=== PATIENT | male | born 1995 | race Hispanic/Latino ===

== ENCOUNTER 2021-01-07 09:51 | Emergency (ER) | payer OTHER ==
[~2021-01-07] VITALS: Ht 175.3 cm; Wt 79.2 kg
[2021-01-07 12:07] LABS: GC DNA AMPLIFICATION NEGATIVE (NEGATIVE)
[2021-01-07] MEDS ORDERED: DOXYCYCLINE HYCLATE 100MG TABLET PO ONE (12:50)
[2021-01-07] MEDS ORDERED: PHEN-372 PO (12:51)
[2021-01-07] MEDS ORDERED: DOXY-443 PO (12:51)
[2021-01-07] MEDS ORDERED: CIPR500T39 PO (12:53)
[2021-01-07] MEDS ORDERED: CIPROFLOXACIN 500MG TABLET PO ONE (12:55)
[2021-01-07 13:14] VITALS: BP 131/79
[2021-01-09 11:36] LABS: HEPATITIS B SURFACE ANTIBODY POSITIVE (POSITIVE); HEPATITIS B SURFACE ANTIGEN NEGATIVE (NEGATIVE); HEPATITIS C VIRUS ABY INDEX 0.1 INDEX (<0.8); HIV 1&2 SCREEN CENTAUR NEGATIVE (NEGATIVE)
== END 2021-01-07 13:15 | disposition home or self-care (01) ==
LOC: M ED 09:51
DX: A56.01 Chlamydial cystitis and urethritis (principal); N30.01 Acute cystitis with hematuria; Z88.2 Allergy status to sulfonamides; Z88.6 Allergy status to analgesic agent; Z79.899 Other long term (current) drug therapy